=== PATIENT | male | born 1965 | race Caucasian/White ===

== ENCOUNTER 2018-01-05 12:02 | Emergency (ER) | payer OTHER, SELFPAY ==
[2018-01-05 13:05] LABS: #Eosinphils 0.1 thou/uL (0.0-0.7); #Lymphocytes 1.7 thou/uL (1.20-3.40); #Monocytes 0.5 thou/uL (0.11-0.59); #Neutrophils 2.5 thou/uL (1.40-6.50); %Basophils 0.2 % (0.0-1.0); %Eosinophils 2.8 % (0.0-10.0); %Monocytes 9.8 % (0.0-10.0); %Neutrophils 51.2 % (42.0-75.0); Hemoglobin 16.5 g/dL (14.0-18.0); Mean Corpuscular HGB CONC 35.5 g/dL (32.0-36.0); Mean Corpuscular Hemoglobin 33.5 pg (27.0-31.0); Mean Corpuscular Volume 94.2 fl (80.0-94.0); Mean Platelet Volume 6.2 fL (7.4-10.4); Platelet Count 226 thou/uL (130-400); RBC Distribution Width 11.6 % (11.5-14.5); Red Blood Cell (RBC) Count 4.92 mill/uL (4.70-6.10); White Blood Cell (WBC) Count 4.8 thou/uL (4.8-10.8)
[2018-01-05 13:32] LABS: ALT (SGPT) 23 U/L (8-55); AST (SGOT) 15 U/L (5-34); Albumin 4.2 g/dL (3.5-5.0); Alkaline Phosphatase 59 U/L (40-150); Anion Gap 10 mmol/L (10-20); BUN (Urea Nitrogen) 13 mg/dL (8.9-20.6); Bilirubin, Total 0.6 mg/dL (0.2-1.2); Calc. Creatinine Clearance 0 mL/min (70-130); Calcium 9.2 mg/dL (7.8-10.44); Carbon Dioxide 25 mmol/L (22-29); Chloride 109 mmol/L (98-107); Estimated GFR-MDRD Greater than 90; Globulin 2.8 g/dL (2.4-3.5); Glucose 79 mg/dL (70-105); Lipase 23 U/L (8-78); Sodium 140 mmol/L (136-145)
[2018-01-05 13:34] LABS: CKMB 1.1 ng/mL (0-6.6); Troponin I 0.019 ng/mL (< 0.028)
[2018-01-05 14:01] LABS: Bilirubin Negative (Negative); Blood, Urine Negative (Negative); Clarity CLEAR (Clear); Glucose, Urine (Dipstick) Negative (Negative); Leukocyte Negative (Negative); Nitrite Negative (Negative); Protein, Urine (Dipstick) Negative (Neg-Trace); Specific Gravity, Urine 1.013 (1.002-1.036); Urobilinogen 0.2 mg/dL (0.2-1.0)
== END 2018-01-05 14:46 | disposition home or self-care (01) ==
LOC: ERS 12:02
DX: R10.11 Right upper quadrant pain (principal); F41.9 Anxiety disorder, unspecified; F31.9 Bipolar disorder, unspecified; F17.220 Nicotine dependence, chewing tobacco, uncomplicated; Z79.899 Other long term (current) drug therapy
CPT/HCPCS: 80053; 81003; 82553; 83690; 84484; 85025; 93005; 96372

== ENCOUNTER 2018-02-04 21:14 | Observation (INO) | payer BC ==
[2018-02-04 22:52] LABS: Troponin I Less than 0.010 ng/mL (< 0.028)
[2018-02-04] MEDS ORDERED: Ondansetron HCl/PF 4 MG/2 ML Vial IVP PRN (23:48)
[2018-02-04] MEDS ORDERED: Acetaminophen 325 MG TAB PO PRN (23:48)
[2018-02-04] MEDS ORDERED: Ondansetron ODT 4 MG TAB SL PRN (23:48)
[2018-02-05 00:13] VITALS: BMI 36.3
[2018-02-05] MEDS ORDERED: Calcium Carbonate 500 MG ChewTAB PO PRN (00:25)
[2018-02-05] MEDS ORDERED: Acetaminophen 325 MG TAB PO PRN (00:25)
[2018-02-05] MEDS ORDERED: Mag-Al 1200 mg/1200 mg/30 ML UDCUP PO PRN (00:25)
[2018-02-05] MEDS ORDERED: Nitroglycerin 0.4 MG TAB (25 Tab Bottle) PO PRN (00:25)
[2018-02-05] MEDS ORDERED: hydrALAZINE 20 MG/ML VIAL SLOW IVP PRN (00:25)
[2018-02-05] MEDS ORDERED: Ondansetron HCl/PF 4 MG/2 ML Vial IVP PRN (00:25)
[2018-02-05] MEDS ORDERED: Senokot 8.6 MG TAB PO PRN (00:25)
[2018-02-05] MEDS ORDERED: Ondansetron ODT 4 MG TAB PO PRN (00:25)
--- NOTE | 2018-02-05 00:49 | HP ---
DATE OF ADMISSION: 02/04/2018 The patient was seen and examined at 02/04/2018 CHIEF COMPLAINT: Chest discomfort. The patient is a transfer from [facility] Emergency Room. HISTORY OF PRESENT ILLNESS: The patient is a 52-year-old male, who presented to the emergency room a [facility] with chest discomfort that started around 2:00 p.m. while he was resting. The pain was falk bsternal, pressure-like, 4/10 without any radiation. He has some shortness of breath; however, denie s any nausea, palpitations or diaphoresis. He denies any fever, chills or cough. No recent immobili zation, travel reported. He has a history of drug abuse in the past; however, denies any recent drug abuse. He denies any orthopnea, paroxysmal nocturnal dyspnea or exertional shortness of breath. Hi s symptoms improved after nitroglycerin. PAST MEDICAL HISTORY: 1. Hypertension, diet controlled. 2. Bipolar disorder. 3. Depression. PAST SURGICAL HISTORY: 1. Emergent appendectomy. 2. Knee surgery. ALLERGIES: Patient is allergic to DEMEROL and TORADOL. CURRENT HOME MEDICATIONS: Patient does not take any prescription medications. SOCIAL HISTORY: Patient is . He has a history of drug abuse in the past. He chews tobacco. FAMILY HISTORY: Positive for congestive heart failure and heart disease. REVIEW OF SYSTEMS: The following complete review of systems was negative, unless otherwise mentioned in the HPI or below: Constitutional: Weight loss or gain, ability to conduct usual activities. Skin: Rash, itching. Eyes: Double vision, pain. ENT/Mouth: Nose bleeding, neck stiffness, pain, tenderness. Cardiovascular: Palpitations, dyspnea on exertion, orthopnea. Respiratory: Shortness of breath, wheezing, cough, hemoptysis, fever or night sweats. Gastrointestinal: Poor appetite, abdominal pain, heartburn, nausea, vomiting, constipation, or diarr hea. Genitourinary: Urgency, frequency, dysuria, nocturia. Musculoskeletal: Pain, swelling. Neurologic/Psychiatric: Anxiety, depression. Allergy/Immunologic: Skin rash, bleeding tendency. PHYSICAL EXAMINATION: VITAL SIGNS: Temperature 97.7, respiration 18, pulse 67, blood pressure 129/85 with O2 saturation 97 % on room air. GENERAL: A 52-year-old male in no apparent distress. HEENT: Head is atraumatic, normocephalic. Sclerae are anicteric. Moist mucous membrane, no oral le azar. NECK: Supple, no JVD appreciated. No carotid bruit. LUNGS: Clear to auscultation bilaterally, no wheezing, rales or rhonchi. HEART: S1, S2 present. Regular rate and rhythm. Questionable reproducible chest wall tenderness. No heaves or pulsation. ABDOMEN: Soft, nontender, bowel sounds present, no rebound or guarding. EXTREMITIES: No edema or calf tenderness. NEUROLOGIC: Grossly nonfocal, moves all four extremities. PSYCHIATRY: Alert, awake, oriented x3. SKIN: Warm and dry. LYMPH NODES: No palpable lymph nodes in the neck. PERIPHERAL VASCULAR: Radial pulses palpable bilaterally. MUSCULOSKELETAL: No joint swelling or tenderness. LABORATORY FINDINGS AND IMAGING: D-dimer was negative. CBC showed WBC 7 with hemoglobin 17.4, hemat ocrit 44, platelet count of 237. Chemistries showed sodium of 142, potassium 3.5, creatinine 0.78 wi th BUN 12. Troponin was normal. Chest x-ray by my review was negative for infiltrate or edema. EKG by my review showed sinus rhythm without significant ST-T wave changes. Heart rate was 60. IMPRESSION: 1. Chest discomfort in a 52-year-old male with family history of heart disease. Pain improved with sublingual nitroglycerin. 2. Anxiety, depression, bipolar disorder. 3. History of drug abuse. 4. Ongoing tobacco abuse. PLAN: The patient will be monitored in the telemetry unit. We will obtain urine drug screen to rule out any ongoing drug abuse prior to stress test. We will confirm home medications and start accordi ngly if he is on any. He does not take any blood pressure medications. We will trend the troponins. Initial troponins have been negative. His D-dimer is also negative. Continue telemetry monitoring . Plan of care was discussed with the patient in detail. He stated understanding.
[2018-02-05 01:40] LABS: Troponin I Less than 0.010 ng/mL (< 0.028)
[2018-02-05 08:57] LABS: Amphetamine Not Detected (NotDetected); Barbiturates Screen Not Detected (NotDetected); Benzodiazepine Screen Not Detected (NotDetected); Cocaine Metabolite Screen Not Detected (NotDetected); Medtox Control Line Valid? VALID (VALID); Medtox Reader # READER 4; Methadone Not Detected (NotDetected); Methamphetamine Not Detected (NotDetected); Opiate Screen Not Detected (NotDetected); Oxycodone Screen Not Detected (NotDetected); Phencyclidine (PCP) Not Detected (NotDetected); THC/Cannabinoid Screen Not Detected (NotDetected); Tricyclic Screen Not Detected (NotDetected)
[2018-02-05] MEDS ORDERED: Aspirin 325 MG TAB PO SCH (09:00)
[2018-02-05] MEDS ORDERED: Docusate 100 MG CAP PO SCH (09:00)
[2018-02-05 12:02] VITALS: BP 155/77; TEMP 97.9
--- NOTE | 2018-02-05 12:21 | NM ---
MYOCARDIAL PERFUSION SCAN WITH SPECT IMAGING: HISTORY: Chest pain. TECHNIQUE/FINDINGS: Examination performed using 31.7 mCi 99m-technetium sestamibi on the stress and 10.9 on the resting i mages. This shows fairly normal distribution of radiopharmaceutical. No signs of ischemia or scar. WALL MOTION: There is symmetric contractility to the ventricle. LEFT VENTRICULAR EJECTION FRACTION: The calculated left ventricular ejection fraction is 64%. IMPRESSION: Unremarkable myocardial perfusion scan. POS: DARIEL
[2018-02-05] MEDS ORDERED: Regadenoson 0.4 MG/5 ML SYRINGE ONE (16:45)
--- NOTE | 2018-02-05 16:53 | DIS ---
DATE OF ADMISSION: 02/04/2018 DATE OF DISCHARGE: 02/05/2018 DISCHARGE DIAGNOSES: 1. Chest pain, non-cardiac, likely musculoskeletal. 2. Smokeless tobacco use. 3. Elevated blood pressure. 4. History of anxiety/depression. CONSULTATIONS: None. PERTINENT LAB AND X-RAY FINDINGS: Complete metabolic profile within normal limits. Troponin I negat vik x3. Urine drug screen dated 02/05/2018 negative. CBC within normal limits. Portable chest x-ra y dated 02/04/2018 showed no acute cardiopulmonary process. Lexiscan Cardiolite stress test showed a dated 02/05/2018 showed no evidence for reversible or fixed ischemia with calculated ejection fracti on of 64%. HOSPITAL COURSE: The patient was observed on the telemetry unit after initially presenting with ches t pain, ruled out for acute coronary syndrome with serial troponin I negative x3. The patient procee ded to Lexiscan stress testing showing no evidence of reversible or fixed ischemia with calculated ej ection fraction of 64%. Telemetry monitoring showed sinus mechanism with heart rates in the 50s to 6 0s without evidence of acute arrhythmia or dysrhythmia. The patient's symptoms consistent with chest wall discomfort and musculoskeletal origin. The patient overall clinically stable and ready for dis charge on 02/05/2018. DISCHARGE MEDICATIONS: None. FOLLOWUP: The patient given a list of primary care providers and local community health clinics. DIET: Heart healthy. CODE STATUS: FULL. DISPOSITION: Home on 02/05/2018.
[2018-02-06] MEDS ORDERED: FLU VACC QS2017-18 36 mo. & older 0.5 ML SYRINGE IM ONE (09:00)
--- NOTE | 2018-02-11 13:12 | EKG ---
Test Reason : CP RO ACS Blood Pressure : / mmHG Vent. Rate : 060 BPM Atrial Rate : 060 BPM P-R Int : 168 ms QRS Dur : 094 ms QT Int : 412 ms P-R-T Axes : 049 002 040 degrees QTc Int : 412 ms Normal sinus rhythm Normal ECG Confirmed by NASH COELHO ([id number]), visual effects editor CARLTON HUTCHINSON ([id number]) on 02/11/2018 1:11:58 PM Referred By: Confirmed By:NASH COELHO
== END 2018-02-05 14:16 | disposition home or self-care (01) ==
LOC: ERS 21:14 → 2SW 23:43
PROVIDERS: ADMIT Internal Medicine; ATTEND Internal Medicine
DX: R07.89 Other chest pain (principal); F41.8 Other specified anxiety disorders; F17.290 Nicotine dependence, other tobacco product, uncomplicated; F31.9 Bipolar disorder, unspecified; I10 Essential (primary) hypertension; F19.11 Other psychoactive substance abuse, in remission; Z88.5 Allergy status to narcotic agent; Z88.8 Allergy status to other drugs, medicaments and biological substances; Z98.890 Other specified postprocedural states; Z90.49 Acquired absence of other specified parts of digestive tract
CPT/HCPCS: 36415; 78452; 80306; 84484; 90471; 90682; 90732; 93005; 93017; A4216; A9500; G0008; G0009; G0378; J2785; Q2036

== ENCOUNTER 2018-10-08 15:26 | Emergency (ER) | payer OTHER, SELFPAY ==
[2018-10-08] MEDS ORDERED: Lidocaine 1% (PF) 30 ML VIAL ONE (15:39)
[2018-10-08] MEDS ORDERED: Bupivacaine 0.5% 10 ML VIAL ONE (15:39)
[2018-10-08] MEDS ORDERED: Adacel (T-DAP) 0.5 ML VIAL ONE (16:38)
--- NOTE | 2018-10-08 18:15 | RAD ---
LEFT FINGER 3 VIEWS: Date: 10/08/18 HISTORY: Partial amputation. COMPARISON: None. FINDINGS: There is a soft tissue partial amputation of the tuft of the index finger. The underlying bone is int act. IMPRESSION: Partial soft tissue amputation. POS: DARIEL
== END 2018-10-08 16:42 | disposition home or self-care (01) ==
LOC: ERS 15:26
DX: S68.123A Partial traumatic metacarpophalangeal amputation of left middle finger, initial encounter (principal); I10 Essential (primary) hypertension; F41.9 Anxiety disorder, unspecified; F31.9 Bipolar disorder, unspecified; F17.220 Nicotine dependence, chewing tobacco, uncomplicated; Z23 Encounter for immunization; Z79.899 Other long term (current) drug therapy; W23.0XXA Caught, crushed, jammed, or pinched between moving objects, initial encounter
CPT/HCPCS: 90471; 90715; J2001; J3490

== ENCOUNTER 2018-12-29 12:23 | Emergency (ER) | payer OTHER ==
[2018-12-29 13:07] LABS: #Basophils 0.1 thou/uL (0.0-0.2); #Eosinphils 0.1 thou/uL (0.0-0.7); #Lymphocytes 1.3 thou/uL (1.20-3.40); #Monocytes 0.4 thou/uL (0.11-0.59); #Neutrophils 3.7 thou/uL (1.40-6.50); %Basophils 1.3 % (0.0-1.0); %Eosinophils 1.6 % (0.0-10.0); %Lymphocytes 23.7 % (21.0-51.0); %Monocytes 7.2 % (0.0-10.0); %Neutrophils 66.2 % (42.0-75.0); Hemoglobin 17.7 g/dL (14.0-18.0); Mean Corpuscular HGB CONC 33.9 g/dL (32.0-36.0); Mean Corpuscular Hemoglobin 31.5 pg (27.0-31.0); Mean Corpuscular Volume 92.7 fL (78.0-98.0); Mean Platelet Volume 5.9 fL (7.4-10.4); Platelet Count 294 thou/uL (130-400); RBC Distribution Width 11.5 % (11.5-14.5); Red Blood Cell (RBC) Count 5.62 mill/uL (4.70-6.10); White Blood Cell (WBC) Count 5.6 thou/uL (4.8-10.8)
[2018-12-29 13:33] LABS: ALT (SGPT) 12 U/L (8-55); AST (SGOT) 12 U/L (5-34); Albumin 4.4 g/dL (3.5-5.0); Alkaline Phosphatase 73 U/L (40-150); Anion Gap 11 mmol/L (10-20); BUN (Urea Nitrogen) 14 mg/dL (8.4-25.7); Bilirubin, Total 0.5 mg/dL (0.2-1.2); Calc. Creatinine Clearance 0 mL/min (70-130); Calcium 10.1 mg/dL (7.8-10.44); Carbon Dioxide 26 mmol/L (22-29); Chloride 107 mmol/L (98-107); Estimated GFR-MDRD Greater than 90; Glucose 99 mg/dL (70-105); Potassium 4.4 mmol/L (3.5-5.1); Protein, Total 7.4 g/dL (6.0-8.3); Sodium 140 mmol/L (136-145)
[2018-12-29] MEDS ORDERED: Ondansetron ODT 4 MG TAB ONE (14:21)
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
[2018-12-29] MEDS ORDERED: traMADol HCl 50 MG TAB ONE (15:35)
[2018-12-29] MEDS ORDERED: Acetaminophen 500 MG TAB ONE (15:35)
== END 2018-12-29 16:25 | disposition home or self-care (01) ==
LOC: ERS 12:23
DX: F07.81 Postconcussional syndrome (principal); F41.9 Anxiety disorder, unspecified; F17.220 Nicotine dependence, chewing tobacco, uncomplicated; I10 Essential (primary) hypertension; F31.9 Bipolar disorder, unspecified; Z79.899 Other long term (current) drug therapy
CPT/HCPCS: 36415; 70450; 80053; 84484; 85025; 93005; Q0162

== ENCOUNTER 2019-03-20 16:55 | Emergency (ER) | payer SELFPAY | END 2019-03-20 18:12 | disposition home or self-care (01) | LOC: ERS 16:55 | DX: R11.2 Nausea with vomiting, unspecified (principal); I10 Essential (primary) hypertension; F41.9 Anxiety disorder, unspecified; F31.9 Bipolar disorder, unspecified; F17.220 Nicotine dependence, chewing tobacco, uncomplicated | CPT/HCPCS: 99283 ==

== ENCOUNTER 2019-03-29 21:48 | Emergency (ER) | payer SELFPAY ==
[~2019-03-29 21:48] MED LIST: ISOVUE-370 76%-LOCM 1 ML ONE
[2019-03-29] MEDS ORDERED: Famotidine/PF 20 mg/2ml Vial ONE (22:12)
[2019-03-29] MEDS ORDERED: Mag-Al 1200 mg/1200 mg/30 ML UDCUP ONE (22:12)
[2019-03-29] MEDS ORDERED: Famotidine 20 MG TAB ONE (22:13)
[2019-03-29 22:57] LABS: #Basophils 0.1 thou/uL (0.0-0.2); #Eosinphils 0.1 thou/uL (0.0-0.7); #Monocytes 0.4 thou/uL (0.11-0.59); #Neutrophils 2.8 thou/uL (1.40-6.50); %Basophils 1.8 % (0.0-1.0); %Eosinophils 2.3 % (0.0-10.0); %Lymphocytes 36.3 % (21.0-51.0); %Monocytes 7.4 % (0.0-10.0); %Neutrophils 52.1 % (42.0-75.0); Hemoglobin 15.2 g/dL (14.0-18.0); Mean Corpuscular HGB CONC 35.7 g/dL (32.0-36.0); Mean Corpuscular Hemoglobin 32.7 pg (27.0-31.0); Mean Corpuscular Volume 91.5 fL (78.0-98.0); Mean Platelet Volume 6.3 fL (7.4-10.4); Platelet Count 228 thou/uL (130-400); RBC Distribution Width 11.4 % (11.5-14.5); Red Blood Cell (RBC) Count 4.65 mill/uL (4.70-6.10); White Blood Cell (WBC) Count 5.4 thou/uL (4.8-10.8)
[2019-03-29 23:07] LABS: ALT (SGPT) 16 U/L (8-55); AST (SGOT) 13 U/L (5-34); Albumin 3.9 g/dL (3.5-5.0); Alkaline Phosphatase 72 U/L (40-150); Anion Gap 14 mmol/L (10-20); BUN (Urea Nitrogen) 15 mg/dL (8.4-25.7); Bilirubin, Total 0.3 mg/dL (0.2-1.2); Calc. Creatinine Clearance 0 mL/min (70-130); Carbon Dioxide 21 mmol/L (22-29); Chloride 109 mmol/L (98-107); Estimated GFR-MDRD Greater than 90; Globulin 2.7 g/dL (2.4-3.5); Glucose 103 mg/dL (70-105); Lipase 33 U/L (8-78); Potassium 3.5 mmol/L (3.5-5.1); Protein, Total 6.6 g/dL (6.0-8.3); Sodium 140 mmol/L (136-145)
--- NOTE | 2019-03-29 23:47 | CT ---
CT ABDOMEN WITH CONTRAST CT PELVIS WITH CONTRAST: DATE: 03/29/2019 HISTORY: 53-year-old male with left upper quadrant abdominal pain TECHNIQUE: IV injection of iodinated contrast media: Administered Oral contrast media:Not administered FINDINGS: Liver: No focal solid mass. Spleen: No splenomegaly.. Pancreas: No mass or surrounding fat stranding.. Adrenals: No mass.. Kidneys: No hydronephrosis or enhancement abnormalities. There are at least 3 tiny bilateral renal ca lculi on the order of 2 mm in size each, 2 at right lower pole and one at left upper pole. Ureters: No dilation. Bladder: No pathology identified. Abdominal aorta: No aneurysm. Small bowel: No dilation. Colon: No adjacent fat stranding. Appendix: Surgically absent by history. Free air: None. Free fluid: None. Lung bases: Clear. IMPRESSION: 1. No acute findings. 2. Mild bilateral nephrolithiasis. 3. Status post appendectomy.
[2019-03-30 00:11] LABS: Bilirubin Negative (Negative); Blood, Urine Negative (Negative); Clarity CLEAR (Clear); Glucose, Urine (Dipstick) Negative (Negative); Leukocyte Negative (Negative); Nitrite Negative (Negative); Protein, Urine (Dipstick) Negative (Neg-Trace); Specific Gravity, Urine 1.017 (1.002-1.036)
== END 2019-03-30 00:27 | disposition home or self-care (01) ==
LOC: ERS 21:48
DX: K29.70 Gastritis, unspecified, without bleeding (principal); I10 Essential (primary) hypertension; F17.220 Nicotine dependence, chewing tobacco, uncomplicated; Z79.899 Other long term (current) drug therapy
CPT/HCPCS: 36415; 74177; 80053; 81003; 83690; 85025; Q9966; S0028

== ENCOUNTER 2019-04-18 21:39 | Emergency (ER) | payer SELFPAY ==
[2019-04-18] MEDS ORDERED: Morphine 4 MG/ML VIAL ONE ×2 (22:37→22:56)
[2019-04-18] MEDS ORDERED: Ondansetron PF 4 MG/2 ML Vial ONE (22:37)
--- NOTE | 2019-04-18 22:52 | ULT ---
Testicular ultrasound history left-sided testicular pain. The patient has a history of undescended ri ght testicle. Multiple longitudinal and transverse images of the scrotum is obtained using multi hertz linear array transducer. Real-time, color flow and spectral waveform Doppler analysis demonstrates nonvisualization of the right testicle. The left testicle measures 3.4 x 4.8 x 2.2 cm. Good blood flow seen in the left testicle. No evidence of testicular mass is seen on the left. The left epididymis is unremarkable measuring 9 x 7 x 7 mm. A small left-sided varicocele is present. IMPRESSION: 1: Normal-appearing left testicle. 2: Prosthetic right testicle.
[2019-04-18] MEDS ORDERED: Ondansetron ODT 4 MG TAB ONE (22:56)
[2019-04-18] MEDS ORDERED: Acetaminophen 325 MG TAB ONE (23:19)
[2019-04-19 00:34] LABS: Clarity Clear (Clear)
[2019-04-19 00:37] LABS: Specific Gravity, Urine 1.025 (1.005-1.030)
[2019-04-19 00:38] LABS: Bilirubin Negative (Negative); Blood, Urine Negative (Negative); Glucose, Urine (Dipstick) Negative (Negative); Leukocyte Negative (Negative); Nitrite Negative (Negative); Protein, Urine (Dipstick) Negative (Neg-Trace)
== END 2019-04-19 00:16 | disposition home or self-care (01) ==
LOC: ERS 21:39
DX: N50.812 Left testicular pain (principal); I10 Essential (primary) hypertension; F17.210 Nicotine dependence, cigarettes, uncomplicated
CPT/HCPCS: 76870; 81003; 93976; 96372; J2270; J2405; Q0162

== ENCOUNTER 2020-04-26 13:34 | Emergency (ER) | payer SELFPAY | END 2020-04-26 14:02 | disposition home or self-care (01) | LOC: ERS 13:34 | DX: Z48.817 Encounter for surgical aftercare following surgery on the skin and subcutaneous tissue (principal); F17.220 Nicotine dependence, chewing tobacco, uncomplicated; F41.9 Anxiety disorder, unspecified; I10 Essential (primary) hypertension; F31.9 Bipolar disorder, unspecified; Z79.899 Other long term (current) drug therapy | CPT/HCPCS: 99282 ==

== ENCOUNTER 2020-05-27 20:12 | Inpatient (IN) | payer SELFPAY ==
[2020-05-27 23:49] VITALS: BMI 33.3
[2020-05-28] MEDS: Morphine 4 MG/ML VIAL SLOW IVP PRN (00:18)
[2020-05-28] MEDS ORDERED: Acetaminophen/Codeine 30-300mg Tablet PO PRN (02:29)
[2020-05-28] MEDS ORDERED: Fentanyl 100 MCG/2 ML VIAL SLOW IVP PRN (02:29)
[2020-05-28] MEDS ORDERED: Acetaminophen 325 MG TAB PO PRN (02:29)
[2020-05-28] MEDS ORDERED: Morphine 4 MG/ML VIAL SLOW IVP PRN (02:29)
[2020-05-28] MEDS ORDERED: TETANUS AND DIPHTHERIA TOX/PF 0.5 ML DISP.SYRIN IM SCH (02:30)
[2020-05-28] MEDS ORDERED: Sodium Chloride 0.9% 100 ML IV SCH (02:30)
[2020-05-28] MEDS ORDERED: Communication Order-Pharmacy FS PRN (02:30)
[2020-05-28] MEDS: HYDROcodone/Acetaminophen 5/325 mg Tablet PO PRN ×2 (02:58→20:13)
[2020-05-28] MEDS: Sodium Chloride 0.9% 1,000 ML IV SCH ×2 (04:17→12:23)
[2020-05-28] MEDS ORDERED: Ketorolac Tromethamine 30 MG/ML VIAL IVP SCH (06:00)
[2020-05-28 06:09] LABS: #Basophils 0.1 thou/uL (0.0-0.2); #Eosinphils 0.2 thou/uL (0.0-0.7); #Lymphocytes 2.2 thou/uL (1.20-3.40); #Monocytes 0.7 thou/uL (0.11-0.59); #Neutrophils 5.3 thou/uL (1.40-6.50); %Basophils 0.9 % (0.0-1.0); %Eosinophils 2.2 % (0.0-10.0); %Lymphocytes 25.9 % (21.0-51.0); %Monocytes 8.6 % (0.0-10.0); %Neutrophils 62.4 % (42.0-75.0); Hemoglobin 15.3 g/dL (14.0-18.0); Mean Corpuscular Hemoglobin 31.9 pg (27.0-31.0); Mean Corpuscular Volume 93.7 fL (78.0-98.0); Mean Platelet Volume 6.3 fL (7.4-10.4); Platelet Count 242 thou/uL (130-400); RBC Distribution Width 11.7 % (11.5-14.5); Red Blood Cell (RBC) Count 4.82 mill/uL (4.70-6.10); White Blood Cell (WBC) Count 8.5 thou/uL (4.8-10.8)
[2020-05-28] MEDS ORDERED: diphenhydrAMINE 50 MG CAP PO PRN (08:08)
[2020-05-28] MEDS: Aspirin 81 mg Enteric Coated Tablet PO SCH ×2 (08:43→20:14)
[2020-05-28] MEDS ORDERED: Vancomycin 1 GM in Premix Bag 1 BAG IVPB SCH (09:00)
[2020-05-28] MEDS ORDERED: PROPOFOL 200 MG/20 ML VIAL ONE (09:49)
[2020-05-28] MEDS ORDERED: Lidocaine 1% PF 5 ML VIAL ONE (09:49)
[2020-05-28] MEDS ORDERED: Ondansetron PF 4 MG/2 ML Vial ONE (09:49)
[2020-05-28] MEDS ORDERED: Rocuronium Bromide 10 MG/ML (10ML VIAL) ONE (09:49)
[2020-05-28] MEDS ORDERED: Glycopyrrolate 0.2 MG/ML 5 ML SYRINGE ONE (09:49)
[2020-05-28] MEDS ORDERED: EPHEDRINE 25 MG/5 ML SYRINGE ONE (09:49)
[2020-05-28] MEDS ORDERED: Succinylcholine Chloride 20 MG/ML 10 ml SYRINGE FS ONE (09:49)
[2020-05-28] MEDS ORDERED: Fentanyl 100 MCG/2 ML VIAL ONE ×2 (12:17)
[2020-05-28] MEDS ORDERED: Bacitracin Zinc Ointment 30 gm TUBE ONE (12:55)
[2020-05-28] MEDS ORDERED: Bupivacaine PF 0.5% 30 ML VIAL ONE (12:55)
[2020-05-28] MEDS: Vancomycin 1.5 GRAM/300 ML BAG 1.5 GM in Premix Bag 1 BAG IVPB SCH (16:51)
[2020-05-29] MEDS: Vancomycin 1.5 GRAM/300 ML BAG 1.5 GM in Premix Bag 1 BAG IVPB SCH ×2 (02:54→16:13)
[2020-05-29] MEDS: HYDROcodone/Acetaminophen 5/325 mg Tablet PO PRN ×3 (03:21→16:12)
[2020-05-29] MEDS: Sodium Chloride 0.9% 1,000 ML IV SCH ×2 (03:24→09:20)
[2020-05-29] MEDS: Aspirin 81 mg Enteric Coated Tablet PO SCH ×2 (09:19→19:53)
--- NOTE | 2020-05-29 15:34 | OP ---
DATE OF PROCEDURE: 05/28/2020 PREOPERATIVE DIAGNOSES: 1. Left index finger open wound with ulnar intrinsic laceration. 2. Foreign body seen with small amount of contamination around the foreign body (small part). No evidence of contamination below the level of the tendon. No joint violation. POSTOPERATIVE DIAGNOSIS: Small abscess cavity, foreign body, router, 15 cm proximal to the 1st webspace, ulnar forearm, same side. PROCEDURES PERFORMED: 1. Foreign body removal, forearm, left. 2. I and D abscess of forearm. 3. Debridement of wound down to including tendon (04432) level. 4. Closure of wound 5 cm. FINDING: There was small part of the router, no gross infection. TOURNIQUET TIME: 22 minutes at 250 mmHg pressure. ESTIMATED BLOOD LOSS: 10 mL. INJECTION: Yes, 26 mL total of Marcaine. DESCRIPTION OF PROCEDURE: After successful general endotracheal anesthesia, the limb was prepped and draped. We see initially the primary wound, which was 5 cm, located in the dorsal web space, more over the ulnar aspect of the index finger at the 2nd web. Then, while prepping and draping, we discovered that he had a 6 mm abscess with erythema, circumscribed around a lesion of the forearm, 15 cm proximal to the 2nd web space along the ulnar border. For this reason, we would include this in the procedure, not initially consented, but it would be improper to leave this at this time. We exsanguinated the limb, inflated the tourniquet to 250 mmHg pressure. We extended the initial 5 cm incision, 1 cm distal and 2 cm proximal. We debrided all the soft tissue, looked denuded and elevated and found the foreign body just under the dorsum of the MP joint index finger. It had a small amount of scatter around it, which we debrided with a combination of tenotomy scissors, [place] blade, and a crile. We used excisional technique and the depth was down to but not including the tendon itself because there was a small hole in the tendon. The hole was in the intrinsic or sagittal bands at the midportion and needed to be repaired. So we finished our debridement, irrigated with 5 L normal saline and Pulsavac pressure at the site and then repaired the tendon problem with an interrupted [id number] 4-0 prolene. At this point, we then extended the incision proximally and found one or two probable areas, of less than 2 mm, removed completely and irrigated again. At this point, we released the tourniquet. We obtained hemostasis. We closed the wound with 4-0 nylon in an interrupted mattress pattern and gave the final additional injectable medicine here and then 10 mL at the forearm area. A small incision was made over this erythematous area and immediately under the skin, both foreign body and gross purulence escaped. Foreign body was the same type seen in the previous 2nd web space procedure. We finished debridement with the same technique and instrumentation used in the 1st episode. Job ID: [id number]
[2020-05-29 15:43] LABS: Vancomycin, Trough 16.2 ug/mL
[2020-05-29] MEDS: Morphine 4 MG/ML VIAL SLOW IVP PRN (17:30)
[2020-05-29] MEDS: traMADol HCl 50 MG TAB PO PRN (19:57)
[2020-05-30] MEDS: Sodium Chloride 0.9% 1,000 ML IV SCH ×2 (00:39→06:44)
[2020-05-30] MEDS: Vancomycin 1.5 GRAM/300 ML BAG 1.5 GM in Premix Bag 1 BAG IVPB SCH (03:04)
[2020-05-30] MEDS: traMADol HCl 50 MG TAB PO PRN (06:54)
[2020-05-30] MEDS: Aspirin 81 mg Enteric Coated Tablet PO SCH (08:38)
[2020-05-30 11:45] VITALS: BP 118/73; TEMP 97.9
--- NOTE | 2020-06-02 07:47 | PQF ---
Marissa URIEL Santos [id number] CLINICAL DOCUMENTATION CLARIFICATION FORM: POST DISCHARGE Addendum to original discharge summary date: ____ Late entry note date: __ DATE: 06/02/2020 ATTN:Uriel Dang Please exercise your independent, professional judgment in responding to the clarification form. Clinical indicators are provided on the bottom of this form for your review Please check appropriate box(s): [ ] Excisional Debridement: Depth / layer: (deepest layer of debridement): [ ] Skin[ ] SubQ Tissue [ ] Fascia [ ] Muscle [ ] Tendon [ ] Bone [ ] Other procedure diagnosis [ ] Unable to determine For continuity of documentation, please document condition throughout progress notes and discharge summary. Thank You. CLINICAL INDICATORS - SIGNS / SYMPTOMS / LABS OP Note 05/28 "small abscess cavity, foreigh body left forearm" OP Note 05/28 "extended the initial 5cm incision 1 cm distal and 2 cm proximal" OP Note 05/28 "we debrided all the soft tissue" OP Note 05/28 "we debrided with a combination of tenotomy scissor, [place] blade and knife" OP Note 05/28 "we used excisional techniquie and the depth was odown to but not including tendon" RISK FACTORS Abscess of forearm-OP Note 05/28 Obesity-Anesthesia 05/28 Smoker-Anesthesia 05/28 TREATMENTS: Debridement with I&D of forearm-OP Note 05/28 Vancomycin 2gm IV-FEB 01 (This form is maintained as a part of the permanent medical record) 2014 [employer]. All Rights Reserved [email or web address] [email or web address]
== END 2020-05-30 11:50 | disposition home or self-care (01) | DRG 581 ==
LOC: SURG B 20:14 → OBSVTOIN 20:14
PROVIDERS: ADMIT Orthopaedic Surgery Hand Surgery; ATTEND Orthopaedic Surgery Hand Surgery
PROC: 3E0234Z Introduction of Serum, Toxoid and Vaccine into Muscle, Percutaneous Approach (ICD-10-PCS; principal; 2020-05-28)
PROC: 0KBB0ZZ Excision of Left Lower Arm and Wrist Muscle, Open Approach (ICD-10-PCS; 2020-05-28)
PROC: 0LQ60ZZ Repair Left Lower Arm and Wrist Tendon, Open Approach (ICD-10-PCS; 2020-05-28)
PROC: 0JCH0ZZ Extirpation of Matter from Left Lower Arm Subcutaneous Tissue and Fascia, Open Approach (ICD-10-PCS; 2020-05-28)
DX: L02.414 Cutaneous abscess of left upper limb (principal); Z23 Encounter for immunization; I10 Essential (primary) hypertension; E78.5 Hyperlipidemia, unspecified; G47.30 Sleep apnea, unspecified; E66.9 Obesity, unspecified; F41.9 Anxiety disorder, unspecified; F31.9 Bipolar disorder, unspecified; F17.220 Nicotine dependence, chewing tobacco, uncomplicated; Z68.33 Body mass index [BMI] 33.0-33.9, adult; Z88.8 Allergy status to other drugs, medicaments and biological substances; S51.842A Puncture wound with foreign body of left forearm, initial encounter
CPT/HCPCS: 36415; 80202; 82565; 85025; 87070; 87205; J2001; J2270; J2405; J2704; J3010; J3370; J7030; Q0163; S0020

== ENCOUNTER 2020-11-10 21:59 | Emergency (ER) | payer SELFPAY ==
[2020-11-10] MEDS ORDERED: Dexamethasone 10 MG/ML VIAL ONE (23:10)
--- NOTE | 2020-11-10 23:13 | RAD ---
Exam: Chest one view HISTORY:Dyspnea. COVID positive. Comparison: 02/15/2019 FINDINGS: Cardiac silhouette: Normal Aorta: Unremarkable Pulmonary vessels: Normal Costophrenic angles: Clear LUNGS: No masses or consolidation. Pneumothorax: None Osseous abnormalities: None IMPRESSION: No acute cardiopulmonary process.
[2020-11-11] MEDS ORDERED: diphenhydrAMINE 50 MG/ML VIAL ONE (00:03)
[2020-11-11] MEDS ORDERED: Metoclopramide HCl 10 MG/2 ML VIAL ONE (00:06)
[2020-11-11] MEDS ORDERED: Metoclopramide 10 MG/10 ML UDCUP ONE (00:06)
[2020-11-11 00:25] LABS: #Basophils 0.1 thou/uL (0.0-0.2); #Eosinphils 0.1 thou/uL (0.0-0.7); #Lymphocytes 1.4 thou/uL (1.20-3.40); #Monocytes 0.6 thou/uL (0.11-0.59); #Neutrophils 7.3 thou/uL (1.40-6.50); %Basophils 1.1 % (0.0-1.0); %Lymphocytes 14.7 % (21.0-51.0); %Monocytes 6.1 % (0.0-10.0); %Neutrophils 77.2 % (42.0-75.0); Hemoglobin 16.6 g/dL (14.0-18.0); Mean Corpuscular HGB CONC 34.4 g/dL (32.0-36.0); Mean Corpuscular Hemoglobin 32.1 pg (27.0-31.0); Mean Corpuscular Volume 93.1 fL (78.0-98.0); Platelet Count 239 thou/uL (130-400); RBC Distribution Width 11.4 % (11.5-14.5); Red Blood Cell (RBC) Count 5.18 mill/uL (4.70-6.10); White Blood Cell (WBC) Count 9.4 thou/uL (4.8-10.8)
[2020-11-11 00:48] LABS: ALT (SGPT) 23 U/L (8-55); AST (SGOT) 31 U/L (5-34); Albumin 3.4 g/dL (3.5-5.0); Alkaline Phosphatase 61 U/L (40-110); Anion Gap 14 mmol/L (10-20); BUN (Urea Nitrogen) 13 mg/dL (8.4-25.7); Bilirubin, Total 0.3 mg/dL (0.2-1.2); CK (CPK) 32 U/L (30-200); Calc. Creatinine Clearance 0 mL/min (70-130); Calcium 8.4 mg/dL (7.8-10.44); Carbon Dioxide 25 mmol/L (22-29); Chloride 106 mmol/L (98-107); Globulin 3.4 g/dL (2.4-3.5); Glucose 96 mg/dL (70-105); Lipase 28 U/L (8-78); Potassium 4.7 mmol/L (3.5-5.1); Protein, Total 6.8 g/dL (6.0-8.3); Sodium 140 mmol/L (136-145)
--- NOTE | 2020-11-15 13:28 | EKG ---
Test Reason : Blood Pressure : / mmHG Vent. Rate : 068 BPM Atrial Rate : 068 BPM P-R Int : 154 ms QRS Dur : 090 ms QT Int : 404 ms P-R-T Axes : 043 -01 051 degrees QTc Int : 429 ms Normal sinus rhythm Cannot rule out Inferior infarct , age undetermined Abnormal ECG Confirmed by AUGUSTO AGUAYO M.D. ([id number]), manager editorial ANNELIESE RACHEL ([id number]) on 11/15/2020 1:28:17 PM Referred By: Confirmed By:AUGUSTO AGUAYO M.D.
== END 2020-11-11 01:25 | disposition home or self-care (01) ==
LOC: ERS 21:59
DX: U07.1 COVID-19 (principal); I10 Essential (primary) hypertension
CPT/HCPCS: 36415; 71045; 80053; 82550; 83690; 83880; 84484; 85025; 85379; 93005; 96374; 96375; J1100; J1200; J2765

== ENCOUNTER 2021-05-05 15:01 | Emergency (ER) | payer OTHER ==
[2021-05-05] MEDS ORDERED: Diazepam 5 MG TAB ONE (16:54)
== END 2021-05-05 17:11 | disposition home or self-care (01) ==
LOC: ERS 15:01
DX: S20.211A Contusion of right front wall of thorax, initial encounter (principal); I10 Essential (primary) hypertension; F17.220 Nicotine dependence, chewing tobacco, uncomplicated; Z79.899 Other long term (current) drug therapy; X50.0XXA Overexertion from strenuous movement or load, initial encounter

== ENCOUNTER 2021-11-02 16:00 | Inpatient (IN) | payer SELFPAY ==
[2021-11-02 16:46] LABS: #Eosinphils 0.1 thou/uL (0.0-0.7); #Lymphocytes 1.7 thou/uL (1.20-3.40); #Neutrophils 7.7 thou/uL (1.40-6.50); %Basophils 0.2 % (0.0-1.0); %Eosinophils 0.8 % (0.0-10.0); %Monocytes 9.8 % (0.0-10.0); %Neutrophils 73.2 % (42.0-75.0); Hemoglobin 19.2 g/dL (14.0-18.0); Mean Corpuscular HGB CONC 35.2 g/dL (32.0-36.0); Mean Corpuscular Volume 93.5 fL (78.0-98.0); Mean Platelet Volume 6.3 fL (7.4-10.4); Platelet Count 210 thou/uL (130-400); RBC Distribution Width 11.7 % (11.5-14.5); Red Blood Cell (RBC) Count 5.83 mill/uL (4.70-6.10); White Blood Cell (WBC) Count 10.6 thou/uL (4.8-10.8)
[2021-11-02] MEDS ORDERED: cefTRIAXone\\ROCEPHIN 2 GM VIAL ONE (16:50)
[2021-11-02 16:56] LABS: Prothrombin Time 13.6 sec (12.0-14.7)
[2021-11-02] MEDS ORDERED: Azithromycin 500 MG VIAL ONE (17:38)
[2021-11-02 17:50] LABS: ALT (SGPT) 18 U/L (8-55); AST (SGOT) 24 U/L (5-34); Albumin 3.4 g/dL (3.5-5.0); Alkaline Phosphatase 72 U/L (40-110); Anion Gap 15 mmol/L (10-20); BUN (Urea Nitrogen) 15 mg/dL (8.4-25.7); Bilirubin, Total 0.7 mg/dL (0.2-1.2); Calc. Creatinine Clearance 0 mL/min (70-130); Calcium 8.3 mg/dL (7.8-10.44); Carbon Dioxide 21 mmol/L (22-29); Chloride 108 mmol/L (98-107); Globulin 3.5 g/dL (2.4-3.5); Glucose 103 mg/dL (70-105); Potassium 3.9 mmol/L (3.5-5.1); Protein, Total 6.9 g/dL (6.0-8.3); Sodium 140 mmol/L (136-145)
[2021-11-02 17:52] LABS: SARS-CoV-2 NAA Rapid Test Not Detected (NotDetected)
[2021-11-02] MEDS ORDERED: Ondansetron ODT 4 MG TAB SL PRN (20:30)
[2021-11-02] MEDS ORDERED: Acetaminophen 325 MG TAB PO PRN (20:30)
[2021-11-02] MEDS ORDERED: Ondansetron PF 4 MG/2 ML Vial IVP PRN (20:30)
[2021-11-02] MEDS ORDERED: HYDROcodone/Acetaminophen 5/325 mg Tablet PO PRN (21:19)
[2021-11-02] MEDS ORDERED: Amlodipine 10 MG TAB PO SCH (21:30)
[2021-11-02] MEDS: Guaifenesin DM 100-10/5 ML UDCUP PO PRN (21:50)
[2021-11-02] MEDS: Nicotine 14 MG PATCH TD SCH (21:50)
[2021-11-02] MEDS: Lactated Ringer's 1,000 ML IV SCH (21:51)
[2021-11-03] MEDS: Guaifenesin DM 100-10/5 ML UDCUP PO PRN ×4 (04:19→17:45)
[2021-11-03 07:57] LABS: ALT (SGPT) 16 U/L (8-55); AST (SGOT) 13 U/L (5-34); Albumin 3.6 g/dL (3.5-5.0); Alkaline Phosphatase 67 U/L (40-110); Anion Gap 12 mmol/L (10-20); BUN (Urea Nitrogen) 12 mg/dL (8.4-25.7); Bilirubin, Total 0.7 mg/dL (0.2-1.2); Calc. Creatinine Clearance 153 mL/min (70-130); Calcium 8.6 mg/dL (7.8-10.44); Carbon Dioxide 22 mmol/L (22-29); Chloride 108 mmol/L (98-107); Globulin 3.2 g/dL (2.4-3.5); Glucose 90 mg/dL (70-105); Potassium 4.1 mmol/L (3.5-5.1); Protein, Total 6.8 g/dL (6.0-8.3); Sodium 138 mmol/L (136-145)
[2021-11-03] MEDS: Lactated Ringer's 1,000 ML IV SCH (08:44)
[2021-11-03] MEDS: Amlodipine 5 MG TAB PO SCH (08:44)
[2021-11-03] MEDS: Enoxaparin Sodium 40 MG/0.4 ML SYRINGE SC SCH (08:44)
[2021-11-03] MEDS: Famotidine 20 MG TAB PO SCH ×2 (08:44→21:36)
[2021-11-03] MEDS ORDERED: FLU VACC QS2021-22(6MOS UP)/PF 60 MCG/0.5 ML SYRINGE IM ONE (09:00)
[2021-11-03 09:24] LABS: Hemoglobin 16.6 g/dL (14.0-18.0); Mean Corpuscular HGB CONC 33.1 g/dL (32.0-36.0); Mean Corpuscular Hemoglobin 31.2 pg (27.0-31.0); Mean Corpuscular Volume 94.2 fL (78.0-98.0); Platelet Count 193 thou/uL (130-400); RBC Distribution Width 11.6 % (11.5-14.5); Red Blood Cell (RBC) Count 5.33 mill/uL (4.70-6.10); White Blood Cell (WBC) Count 9.6 thou/uL (4.8-10.8)
[2021-11-03] MEDS ORDERED: methylPREDNISolone Sod Succ 40 MG VIAL IVP SCH (09:45)
[2021-11-03] MEDS ORDERED: Albuterol Sulfate 1.25 MG/3 ML NEB EZPAP PRN (09:46)
[2021-11-03] MEDS ORDERED: Albuterol Sulfate 1.25 MG/3 ML NEB EZPAP SCH (10:00)
[2021-11-03 10:16] LABS: Band 8 % (5-11); Eosinophils 1 % (0-10); Lymphocytes 13 % (21-51); MDiff Complete? YES; Monocytes 1 % (0-10); Neutrophil 71 % (42-75); Platelet Morphology Comment Appears Adequate; RBC Morphology Normal; Reactive Lymphocytes 6 % (0-10)
[2021-11-03] MEDS ORDERED: Ketorolac Tromethamine 30 MG/ML VIAL IVP SCH (13:50)
[2021-11-03] MEDS ORDERED: Budesonide 0.25 MG/2 ML NEB INH SCH (14:30)
[2021-11-03] MEDS: methylPREDNISolone Sod Succ 40 MG VIAL IVP SCH (17:45)
[2021-11-03] MEDS: Nicotine 14 MG PATCH TD SCH (21:37)
[2021-11-04] MEDS: methylPREDNISolone Sod Succ 40 MG VIAL IVP SCH ×3 (00:43→11:17)
[2021-11-04] MEDS ORDERED: Budesonide 0.25 MG/2 ML NEB INH SCH (06:30)
[2021-11-04] MEDS: Amlodipine 5 MG TAB PO SCH (08:51)
[2021-11-04] MEDS: Famotidine 20 MG TAB PO SCH (08:51)
[2021-11-04] MEDS: Enoxaparin Sodium 40 MG/0.4 ML SYRINGE SC SCH (08:52)
[2021-11-04] MEDS ORDERED: Lidocaine 5% Patch TD SCH (09:00)
[2021-11-04 11:55] VITALS: BP 124/69; TEMP 98.6
[2021-11-04] MEDS ORDERED: Transdermal Patch Removal TOP SCH (21:00)
== END 2021-11-04 13:58 | disposition home or self-care (01) | DRG 202 ==
LOC: ERS 16:00 → T4-A 18:26 → OBSVTOIN 11-03 13:49
PROVIDERS: ADMIT Internal Medicine; ATTEND Internal Medicine
DX: J20.9 Acute bronchitis, unspecified (principal); J44.0 Chronic obstructive pulmonary disease with (acute) lower respiratory infection; I10 Essential (primary) hypertension; D75.1 Secondary polycythemia; F31.9 Bipolar disorder, unspecified; F17.220 Nicotine dependence, chewing tobacco, uncomplicated; Z20.822 Contact with and (suspected) exposure to COVID-19; Z88.8 Allergy status to other drugs, medicaments and biological substances; Z79.899 Other long term (current) drug therapy; Z90.49 Acquired absence of other specified parts of digestive tract
CPT/HCPCS: 0240U; 36415; 71045; 71250; 80053; 83605; 84484; 85007; 85027; 85610; 85730; 87040; 87149; 93005; 94640; 94760; 96372; 96375; G0378; J0456; J0696; J1650; J1956; J2920; J7120; J7620; J7626

== ENCOUNTER 2023-01-26 19:49 | Emergency (ER) | payer SELFPAY ==
[2023-01-26 20:13] LABS: #Basophils 0.1 thou/uL (0.0-0.2); #Eosinphils 0.2 thou/uL (0.0-0.7); #Lymphocytes 2.2 thou/uL (1.20-3.40); #Monocytes 0.9 thou/uL (0.11-0.59); #Neutrophils 3.9 thou/uL (1.40-6.50); %Basophils 0.8 % (0.0-1.0); %Eosinophils 3.1 % (0.0-10.0); %Lymphocytes 30.7 % (21.0-51.0); %Monocytes 11.8 % (0.0-10.0); %Neutrophils 53.7 % (42.0-75.0); Mean Corpuscular HGB CONC 34.7 g/dL (32.0-36.0); Mean Corpuscular Hemoglobin 32.7 pg (27.0-31.0); Mean Corpuscular Volume 94.3 fl (78.0-98.0); Mean Platelet Volume 6.1 fL (7.4-10.4); Platelet Count 250 10x3/uL (130-400); RBC Distribution Width 11.6 % (11.5-14.5); White Blood Cell (WBC) Count 7.3 10x3/uL (4.8-10.8)
[2023-01-26 20:38] LABS: ALT (SGPT) 11 U/L (8-55); AST (SGOT) 10 U/L (5-34); Albumin 3.9 g/dL (3.5-5.0); Alkaline Phosphatase 90 U/L (40-110); Anion Gap 14 mmol/L (10-20); BUN (Urea Nitrogen) 12 mg/dL (8.4-25.7); Bilirubin, Total 0.4 mg/dL (0.2-1.2); Calc. Creatinine Clearance 0 mL/min (70-130); Calcium 9.1 mg/dL (7.8-10.44); Carbon Dioxide 24 mmol/L (22-29); Chloride 107 mmol/L (98-107); Estimated GFR 81; Globulin 2.8 g/dL (2.4-3.5); Glucose 99 mg/dL (70-105); Potassium 4.2 mmol/L (3.5-5.1); Protein, Total 6.7 g/dL (6.0-8.3); Sodium 141 mmol/L (136-145)
== END 2023-01-26 22:59 | disposition home or self-care (01) ==
LOC: ERS 19:49
DX: J06.9 Acute upper respiratory infection, unspecified (principal); I10 Essential (primary) hypertension
CPT/HCPCS: 36415; 71045; 80053; 84484; 85025; 93005

== ENCOUNTER 2023-04-05 18:49 | Inpatient (IN) | payer SELFPAY ==
[~2023-04-05 18:49] MED LIST changes: -ISOVUE-370 76%-LOCM 1 ML ONE; +Iopamidol 370 76% 100 ML VIAL ONE
[2023-04-05] MEDS ORDERED: Morphine 4 MG/ML VIAL ONE (19:44)
[2023-04-05] MEDS ORDERED: Ondansetron PF 4 MG/2 ML Vial ONE (19:44)
[2023-04-05 19:59] LABS: #Basophils 0.1 thou/uL (0.0-0.2); #Eosinphils 0.1 thou/uL (0.0-0.7); #Monocytes 0.9 thou/uL (0.11-0.59); #Neutrophils 12.8 thou/uL (1.40-6.50); %Basophils 0.3 % (0.0-1.0); %Eosinophils 0.5 % (0.0-10.0); %Lymphocytes 9.6 % (21.0-51.0); %Monocytes 5.7 % (0.0-10.0); %Neutrophils 83.5 % (42.0-75.0); Hemoglobin 19.3 g/dL (14.0-18.0); Mean Corpuscular HGB CONC 34.6 g/dL (32.0-36.0); Mean Corpuscular Hemoglobin 31.4 pg (27.0-31.0); Mean Corpuscular Volume 90.7 fl (78.0-98.0); Mean Platelet Volume 8.4 fL (7.4-10.4); Platelet Count 288 10x3/uL (130-400); RBC Distribution Width 12.6 % (11.5-14.5); Red Blood Cell (RBC) Count 6.14 mill/uL (4.70-6.10); White Blood Cell (WBC) Count 15.4 10x3/uL (4.8-10.8)
[2023-04-05 20:24] LABS: ALT (SGPT) 18 U/L (8-55); AST (SGOT) 16 U/L (5-34); Alkaline Phosphatase 84 U/L (40-110); Anion Gap 15 mmol/L (10-20); BUN (Urea Nitrogen) 10 mg/dL (8.4-25.7); Bilirubin, Total 0.8 mg/dL (0.2-1.2); Calc. Creatinine Clearance 0 mL/min (70-130); Calcium 10.5 mg/dL (7.8-10.44); Carbon Dioxide 27 mmol/L (22-29); Chloride 103 mmol/L (98-107); Estimated GFR 72; Globulin 3.7 g/dL (2.4-3.5); Glucose 115 mg/dL (70-105); Lipase 13 U/L (8-78); Potassium 3.8 mmol/L (3.5-5.1); Protein, Total 8.7 g/dL (6.0-8.3); Sodium 141 mmol/L (136-145)
[2023-04-05] MEDS ORDERED: Midazolam HCl 2 mg/2 ml Vial ONE (22:09)
[2023-04-05 23:40] VITALS: BMI 36.5
[2023-04-05] MEDS ORDERED: Sodium Chloride 0.9% 1,000 ML IV SCH (23:45)
[2023-04-06] MEDS ORDERED: Ondansetron PF 4 MG/2 ML Vial IVP PRN (00:10)
[2023-04-06] MEDS ORDERED: Morphine 4 MG/ML VIAL SLOW IVP PRN (00:11)
[2023-04-06] MEDS ORDERED: Ipratropium/Albuterol 3 ML NEB NEB PRN (03:02)
[2023-04-06] MEDS ORDERED: Benzocaine 20% Spray 60 ML CAN TOP SCH (03:45)
[2023-04-06] MEDS ORDERED: Lidocaine 2% Jelly 5 ML TUBE TOP SCH (03:45)
[2023-04-06] MEDS: Acetaminophen 325 MG TAB PO SCH ×4 (04:56→23:42)
[2023-04-06] MEDS: Sodium Chloride 0.9% 1,000 ML IV SCH ×3 (05:34→20:56)
[2023-04-06 05:58] LABS: #Eosinphils 0.1 thou/uL (0.0-0.7); #Monocytes 0.9 thou/uL (0.11-0.59); #Neutrophils 11.4 thou/uL (1.40-6.50); %Basophils 0.2 % (0.0-1.0); %Eosinophils 0.9 % (0.0-10.0); %Lymphocytes 9.1 % (21.0-51.0); %Monocytes 6.2 % (0.0-10.0); %Neutrophils 82.9 % (42.0-75.0); Hemoglobin 16.8 g/dL (14.0-18.0); Mean Corpuscular HGB CONC 32.7 g/dL (32.0-36.0); Mean Corpuscular Hemoglobin 30.8 pg (27.0-31.0); Mean Platelet Volume 8.7 fL (7.4-10.4); Platelet Count 206 10x3/uL (130-400); RBC Distribution Width 13.1 % (11.5-14.5); Red Blood Cell (RBC) Count 5.46 mill/uL (4.70-6.10); White Blood Cell (WBC) Count 13.8 10x3/uL (4.8-10.8)
[2023-04-06 06:14] LABS: Mean Corpuscular Volume 94.1 fl (78.0-98.0)
[2023-04-06 06:37] LABS: Anion Gap 12 mmol/L (10-20); BUN (Urea Nitrogen) 10 mg/dL (8.4-25.7); Calc. Creatinine Clearance 127 mL/min (70-130); Calcium 8.4 mg/dL (7.8-10.44); Carbon Dioxide 21 mmol/L (22-29); Chloride 110 mmol/L (98-107); Estimated GFR 101; Glucose 108 mg/dL (70-105); Phosphorus 3.2 mg/dL (2.3-4.7); Potassium 4.1 mmol/L (3.5-5.1); Sodium 139 mmol/L (136-145)
[2023-04-06] MEDS ORDERED: Famotidine/PF 20 mg/2ml Vial SLOW IVP SCH (09:00)
[2023-04-06] MEDS ORDERED: MD-Gastroview 120 ML BOT ONE (10:40)
[2023-04-06 10:42] LABS: Bacteria/HPF None Seen HPF (None Seen); Bilirubin Negative (Negative); Blood, Urine Negative (Negative); CAUTI Indications for Culture Dysuria,urgency,freq; Clarity Clear (Clear); Glucose, Urine (Dipstick) Normal (Negative); Ketone, Urine Negative (Negative); Leukocyte Negative Leu/uL (Negative); Nitrite Negative (Negative); Protein, Urine (Dipstick) 10 mg/dL (Neg-Trace); RBC/HPF 0-3 HPF (0-3); Specific Gravity, Urine 1.056 (1.002-1.036); Squamous Epithelial None Seen HPF (0-3); Urobilinogen Normal mg/dL (Less than 2); WBC/HPF 0-3 HPF (0-3); pH, Urine 5.5 (5.0-9.0)
[2023-04-06 10:44] LABS: Urine Culture Reflex No No
[2023-04-07] MEDS: Sodium Chloride 0.9% 1,000 ML IV SCH (05:57)
[2023-04-07] MEDS: Acetaminophen 325 MG TAB PO SCH ×4 (05:59→23:52)
[2023-04-07] MEDS: Lactated Ringer's 1,000 ML IV SCH ×3 (08:30→23:56)
[2023-04-07 09:52] LABS: #Eosinphils 0.1 thou/uL (0.0-0.7); #Monocytes 0.8 thou/uL (0.11-0.59); #Neutrophils 6.7 thou/uL (1.40-6.50); %Basophils 0.3 % (0.0-1.0); %Eosinophils 1.5 % (0.0-10.0); %Lymphocytes 18.4 % (21.0-51.0); %Monocytes 8.5 % (0.0-10.0); Hemoglobin 14.3 g/dL (14.0-18.0); Mean Corpuscular Hemoglobin 31.3 pg (27.0-31.0); Mean Corpuscular Volume 97.8 fl (78.0-98.0); Mean Platelet Volume 9.3 fL (7.4-10.4); Platelet Count 179 10x3/uL (130-400); Red Blood Cell (RBC) Count 4.57 mill/uL (4.70-6.10); White Blood Cell (WBC) Count 9.4 10x3/uL (4.8-10.8)
[2023-04-07] MEDS ORDERED: Iopamidol-370 76% 500 ML MDV (1 ML CHARGE) ONE (10:13)
[2023-04-07 11:33] LABS: Albumin 3.6 g/dL (3.5-5.0)
[2023-04-07 11:34] LABS: Chloride 105 mmol/L (98-107); Sodium 137 mmol/L (136-145)
[2023-04-07 11:35] LABS: Calcium 8.4 mg/dL (7.8-10.44); Potassium 4.1 mmol/L (3.5-5.1)
[2023-04-07 11:36] LABS: Globulin 2.8 g/dL (2.4-3.5); Glucose 71 mg/dL (70-105)
[2023-04-07 11:37] LABS: Anion Gap 12 mmol/L (10-20); Carbon Dioxide 24 mmol/L (22-29)
[2023-04-07 11:39] LABS: Alkaline Phosphatase 59 U/L (40-110); Calc. Creatinine Clearance 137 mL/min (70-130); Estimated GFR 103
[2023-04-07 11:40] LABS: BUN (Urea Nitrogen) 12 mg/dL (8.4-25.7)
[2023-04-07 11:41] LABS: ALT (SGPT) 10 U/L (8-55); AST (SGOT) 11 U/L (5-34)
[2023-04-07 11:47] LABS: Protein, Total 6.4 g/dL (6.0-8.3)
[2023-04-07] MEDS ORDERED: Morphine 2 MG/ML VIAL SLOW IVP PRN (16:37)
[2023-04-07] MEDS ORDERED: traMADol HCl 50 MG TAB PO PRN (16:37)
[2023-04-07] MEDS ORDERED: Cyclobenzaprine 10 MG TAB PO PRN (16:37)
[2023-04-07] MEDS: traMADol HCl 50 MG TAB PO SCH ×2 (18:06→23:52)
[2023-04-07 18:09] LABS: Bacteria/HPF None Seen HPF (None Seen); Bilirubin Negative (Negative); Blood, Urine Trace (Negative); CAUTI Indications for Culture Alt mental st,lethar; Clarity Clear (Clear); Glucose, Urine (Dipstick) Normal (Negative); Ketone, Urine 40 mg/dL (Negative); Leukocyte Negative Leu/uL (Negative); Nitrite Negative (Negative); Protein, Urine (Dipstick) 10 mg/dL (Neg-Trace); RBC/HPF 0-3 HPF (0-3); Specific Gravity, Urine 1.048 (1.002-1.036); Squamous Epithelial 0-3 HPF (0-3); WBC/HPF 0-3 HPF (0-3)
[2023-04-07 18:10] LABS: Urine Culture Reflex No No
[2023-04-07] MEDS ORDERED: Tamsulosin HCl 0.4 MG CAP PO SCH (21:00)
[2023-04-08] MEDS: traMADol HCl 50 MG TAB PO SCH ×2 (06:00→12:38)
[2023-04-08] MEDS: Acetaminophen 325 MG TAB PO SCH ×2 (06:00→12:39)
[2023-04-08] MEDS: Lactated Ringer's 1,000 ML IV SCH (06:03)
[2023-04-08 11:02] VITALS: BP 112/76; TEMP 97.7
[2023-04-10 16:13] LABS: Adenovirus F 40-41 Not Detected (Not Detected); Astrovirus Not Detected (Not Detected); Campylobacter by PCR Not Detected (Not Detected); Cryptosporidium Not Detected (Not Detected); Cyclospora cayetanensis Not Detected (Not Detected); Entamoeba histolytica Not Detected (Not Detected); Enteroaggregative E. coli Not Detected (Not Detected); Enteropathogenic E. coli Not Detected (Not Detected); Enterotoxigenic E. coli Not Detected (Not Detected); Giardia lamblia Not Detected (Not Detected); Norovirus GI-GII DETECTED (Not Detected); Plesiomonas shigelloides Not Detected (Not Detected); Rotavirus A Not Detected (Not Detected); Salmonella Not Detected (Not Detected); Sapovirus Not Detected (Not Detected); Shiga-toxin-producing E coli Not Detected (Not Detected); Shigella/Enteroinvasive E coli Not Detected (Not Detected); Vibrio Not Detected (Not Detected); Vibrio cholerae Not Detected (Not Detected); Yersinia enterocolitica Not Detected (Not Detected)
== END 2023-04-08 14:00 | disposition home or self-care (01) | DRG 392 ==
LOC: ERS 18:49 → SURG A 21:39 → OBSVTOIN 04-06 11:24
PROVIDERS: ADMIT Specialist; ATTEND Specialist
PROC: 0D9670Z Drainage of Stomach with Drainage Device, Via Natural or Artificial Opening (ICD-10-PCS; principal; 2023-04-06)
DX: K52.9 Noninfective gastroenteritis and colitis, unspecified (principal); K56.609 Unspecified intestinal obstruction, unspecified as to partial versus complete obstruction; F17.290 Nicotine dependence, other tobacco product, uncomplicated; E86.0 Dehydration; Z90.49 Acquired absence of other specified parts of digestive tract; Z79.82 Long term (current) use of aspirin; Z88.6 Allergy status to analgesic agent; Z88.5 Allergy status to narcotic agent; Z88.8 Allergy status to other drugs, medicaments and biological substances
CPT/HCPCS: 36415; 74018; 74019; 74177; 74250; 80048; 80053; 81001; 83630; 83690; 83735; 84100; 85025; 87040; 87324; 87449; 87507; 96375; 96376; G0378; J1650; J2250; J2270; J2405; J7050; J7120; Q9963; Q9967; S0028

== ENCOUNTER 2023-10-23 06:32 | Emergency (ER) | payer OTHER ==
[2023-10-23 07:00] LABS: #Eosinphils 0.2 thou/uL (0.0-0.7); #Monocytes 0.6 thou/uL (0.11-0.59); #Neutrophils 3.1 thou/uL (1.40-6.50); %Basophils 0.7 % (0.0-1.0); %Eosinophils 3.1 % (0.0-10.0); %Lymphocytes 31.6 % (21.0-51.0); %Monocytes 10.1 % (0.0-10.0); %Neutrophils 54.3 % (42.0-75.0); Hematocrit 52.6 % (42.0-52.0); Hemoglobin 18.1 g/dL (14.0-18.0); Mean Corpuscular HGB CONC 34.4 g/dL (32.0-36.0); Mean Corpuscular Hemoglobin 31.8 pg (27.0-31.0); Mean Corpuscular Volume 92.3 fl (78.0-98.0); Mean Platelet Volume 8.6 fL (7.4-10.4); Platelet Count 214 10x3/uL (130-400); RBC Distribution Width 12.1 % (11.5-14.5); White Blood Cell (WBC) Count 5.7 10x3/uL (4.8-10.8)
[2023-10-23] MEDS ORDERED: Ondansetron PF 4 MG/2 ML Vial ONE (07:14)
[2023-10-23 07:24] LABS: ALT (SGPT) 14 U/L (8-55); AST (SGOT) 13 U/L (5-34); Albumin 4.2 g/dL (3.5-5.0); Alkaline Phosphatase 66 U/L (40-110); Anion Gap 12 mmol/L (10-20); BUN (Urea Nitrogen) 15 mg/dL (8.4-25.7); Bilirubin, Total 0.7 mg/dL (0.2-1.2); Calc. Creatinine Clearance 0 mL/min (70-130); Calcium 9.4 mg/dL (7.8-10.44); Carbon Dioxide 24 mmol/L (22-29); Chloride 106 mmol/L (98-107); Estimated GFR 101; Globulin 3.1 g/dL (2.4-3.5); Glucose 114 mg/dL (70-105); Lipase 24 U/L (8-78); Potassium 4.6 mmol/L (3.5-5.1); Protein, Total 7.3 g/dL (6.0-8.3); Sodium 137 mmol/L (136-145)
[2023-10-23] MEDS ORDERED: Dicyclomine 20 MG/2 ML VIAL ONE (08:14)
[2023-10-23] MEDS ORDERED: Iopamidol-370 76% 500 ML MDV (1 ML CHARGE) ONE (11:30)
== END 2023-10-23 08:27 | disposition home or self-care (01) ==
LOC: ERS 06:32
DX: K59.00 Constipation, unspecified (principal); I10 Essential (primary) hypertension; F17.210 Nicotine dependence, cigarettes, uncomplicated
CPT/HCPCS: 36415; 74177; 80053; 83690; 85025; 96361; 96372; 96374; J2405; Q9967

== ENCOUNTER 2023-12-15 18:30 | Inpatient (IN) | payer OTHER ==
[~2023-12-15 18:30] MED LIST changes: -Iopamidol 370 76% 100 ML VIAL ONE; +Iopamidol-370 76% 500 ML MDV (1 ML CHARGE) ONE
[2023-12-15 19:51] LABS: #Eosinphils 0.2 thou/uL (0.0-0.7); #Neutrophils 9.9 thou/uL (1.40-6.50); %Basophils 0.3 % (0.0-1.0); %Eosinophils 1.4 % (0.0-10.0); %Lymphocytes 12.1 % (21.0-51.0); %Monocytes 7.7 % (0.0-10.0); %Neutrophils 78.2 % (42.0-75.0); Hemoglobin 17.8 g/dL (14.0-18.0); Mean Corpuscular HGB CONC 33.6 g/dL (32.0-36.0); Mean Corpuscular Hemoglobin 31.8 pg (27.0-31.0); Mean Corpuscular Volume 94.6 fl (78.0-98.0); Mean Platelet Volume 8.2 fL (7.4-10.4); Platelet Count 238 10x3/uL (130-400); RBC Distribution Width 12.3 % (11.5-14.5); White Blood Cell (WBC) Count 12.6 10x3/uL (4.8-10.8)
[2023-12-15 20:32] LABS: ALT (SGPT) 14 U/L (8-55); AST (SGOT) 11 U/L (5-34); Albumin 3.9 g/dL (3.5-5.0); Alkaline Phosphatase 69 U/L (40-110); Anion Gap 11 mmol/L (10-20); BUN (Urea Nitrogen) 17 mg/dL (8.4-25.7); Bilirubin, Total 0.7 mg/dL (0.2-1.2); Calc. Creatinine Clearance 0 mL/min (70-130); Calcium 8.5 mg/dL (7.8-10.44); Carbon Dioxide 23 mmol/L (22-29); Chloride 108 mmol/L (98-107); Estimated GFR 101; Glucose 115 mg/dL (70-105); Lipase 120 U/L (8-78); Potassium 4.5 mmol/L (3.5-5.1); Protein, Total 6.9 g/dL (6.0-8.3); Sodium 137 mmol/L (136-145)
[2023-12-15] MEDS ORDERED: Morphine 4 MG/ML VIAL ONE (20:43)
[2023-12-15] MEDS ORDERED: Ondansetron PF 4 MG/2 ML Vial ONE (20:44)
[2023-12-15] MEDS ORDERED: Acetaminophen 325 MG TAB PO PRN (21:25)
[2023-12-15] MEDS ORDERED: Ondansetron PF 4 MG/2 ML Vial IVP PRN (21:25)
[2023-12-15] MEDS ORDERED: Ondansetron ODT 4 MG TAB PO PRN (21:25)
[2023-12-15] MEDS ORDERED: Acetaminophen 650 MG Suppository PR PRN (21:25)
[2023-12-15] MEDS: Dextrose 5%-Lactated Ringers 1,000 ML IV SCH (23:32)
[2023-12-15 23:57] VITALS: BMI 31.6
[2023-12-16 02:00] LABS: Amphetamine Detected (NotDetected); Barbiturates Screen Not Detected (NotDetected); Benzodiazepine Screen Not Detected (NotDetected); Cocaine Metabolite Screen Not Detected (NotDetected); Methadone Not Detected (NotDetected); Methamphetamine Detected (NotDetected); Opiate Screen Detected (NotDetected); Oxycodone Screen Not Detected (NotDetected); Phencyclidine (PCP) Not Detected (NotDetected); THC/Cannabinoid Screen Not Detected (NotDetected); Tricyclic Screen Not Detected (NotDetected)
[2023-12-16 06:19] LABS: #Eosinphils 0.2 thou/uL (0.0-0.7); %Basophils 0.2 % (0.0-1.0); %Eosinophils 2.1 % (0.0-10.0); %Lymphocytes 24.5 % (21.0-51.0); %Monocytes 11.7 % (0.0-10.0); %Neutrophils 61.1 % (42.0-75.0); Hematocrit 53.2 % (42.0-52.0); Hemoglobin 17.7 g/dL (14.0-18.0); Mean Corpuscular HGB CONC 33.3 g/dL (32.0-36.0); Mean Corpuscular Hemoglobin 31.9 pg (27.0-31.0); Mean Platelet Volume 8.6 fL (7.4-10.4); Platelet Count 217 10x3/uL (130-400); RBC Distribution Width 12.4 % (11.5-14.5); Red Blood Cell (RBC) Count 5.54 mill/uL (4.70-6.10); White Blood Cell (WBC) Count 8.2 10x3/uL (4.8-10.8)
[2023-12-16 06:42] LABS: Anion Gap 11 mmol/L (10-20); BUN (Urea Nitrogen) 14 mg/dL (8.4-25.7); Calc. Creatinine Clearance 125 mL/min (70-130); Calcium 8.5 mg/dL (7.8-10.44); Carbon Dioxide 26 mmol/L (22-29); Chloride 104 mmol/L (98-107); Estimated GFR 101; Glucose 103 mg/dL (70-105); Potassium 4.3 mmol/L (3.5-5.1); Sodium 137 mmol/L (136-145)
[2023-12-16] MEDS: Acetaminophen 650 MG/20.3 ML UDCUP PER TUBE PRN (08:44)
[2023-12-16] MEDS: Famotidine 20 MG TAB PO SCH ×3 (08:45→22:23)
[2023-12-16] MEDS: Famotidine/PF 20 mg/2ml Vial SLOW IVP SCH ×2 (08:45→22:23)
[2023-12-16] MEDS: Dextrose 5%-Lactated Ringers 1,000 ML IV SCH (08:47)
[2023-12-16] MEDS: Morphine 2 MG/ML VIAL SLOW IVP PRN ×4 (09:52→22:35)
[2023-12-17 00:34] LABS: Base Excess 0.2 mEq/L (-2.0 to +3.0); Calcium, Ionized (venous) 1.13 mmol/L (1.16-1.32); Chloride (VBG) 99 mmol/L (98-106); Hematocrit-VBG 49 % (42.0-52.0); Hemoglobin (Hb) 16.7 g/dL (13.1-17.2); Potassium (VBG) 4.26 mmol/L (3.70-5.30); Sodium 137 mmol/L (133-146); pH (venous) 7.371 (7.32-7.43)
[2023-12-17 00:39] LABS: #Eosinphils 0.1 thou/uL (0.0-0.7); #Monocytes 0.9 thou/uL (0.11-0.59); #Neutrophils 6.9 thou/uL (1.40-6.50); %Basophils 0.3 % (0.0-1.0); %Lymphocytes 18.8 % (21.0-51.0); %Monocytes 9.5 % (0.0-10.0); %Neutrophils 70.2 % (42.0-75.0); Hematocrit 46.6 % (42.0-52.0); Hemoglobin 16.1 g/dL (14.0-18.0); Mean Corpuscular HGB CONC 34.5 g/dL (32.0-36.0); Mean Corpuscular Hemoglobin 32.3 pg (27.0-31.0); Mean Corpuscular Volume 93.6 fl (78.0-98.0); Mean Platelet Volume 8.2 fL (7.4-10.4); Platelet Count 196 10x3/uL (130-400); RBC Distribution Width 12.1 % (11.5-14.5); Red Blood Cell (RBC) Count 4.98 mill/uL (4.70-6.10); White Blood Cell (WBC) Count 9.8 10x3/uL (4.8-10.8)
[2023-12-17 00:56] LABS: Lactic Acid 0.8 mmol/L (0.5-2.2)
[2023-12-17 01:01] LABS: Anion Gap 12 mmol/L (10-20); BUN (Urea Nitrogen) 11 mg/dL (8.4-25.7); Calc. Creatinine Clearance 140 mL/min (70-130); Calcium 8.2 mg/dL (7.8-10.44); Carbon Dioxide 28 mmol/L (22-29); Chloride 101 mmol/L (98-107); Estimated GFR 104; Glucose 84 mg/dL (70-105); Magnesium 1.9 mg/dL (1.6-2.6); Potassium 4.2 mmol/L (3.5-5.1); Sodium 137 mmol/L (136-145)
[2023-12-17] MEDS: Morphine 2 MG/ML VIAL SLOW IVP PRN ×5 (03:37→21:34)
[2023-12-17] MEDS: Acetaminophen 650 MG/20.3 ML UDCUP PER TUBE PRN (03:38)
[2023-12-17] MEDS: Famotidine/PF 20 mg/2ml Vial SLOW IVP SCH ×2 (08:48→21:07)
[2023-12-17] MEDS: Famotidine 20 MG TAB PO SCH ×2 (08:54→20:25)
[2023-12-17] MEDS: Dicyclomine 10 MG CAP PO SCH ×2 (17:30→20:25)
[2023-12-17] MEDS: Senokot S 8.6-50 MG TAB PO SCH (20:25)
[2023-12-18] MEDS: HYDROcodone/Acetaminophen 5/325 mg Tablet PO PRN ×2 (01:50→22:51)
[2023-12-18] MEDS: Morphine 2 MG/ML VIAL SLOW IVP PRN ×3 (09:09→18:45)
[2023-12-18] MEDS: Famotidine/PF 20 mg/2ml Vial SLOW IVP SCH ×2 (09:11→20:07)
[2023-12-18] MEDS: Famotidine 20 MG TAB PO SCH ×2 (09:35→20:02)
[2023-12-18] MEDS: Senokot S 8.6-50 MG TAB PO SCH ×2 (09:36→20:02)
[2023-12-18] MEDS: Dicyclomine 10 MG CAP PO SCH ×4 (09:36→20:02)
[2023-12-18] MEDS: Phenol 177 ML BOT PO PRN ×3 (09:48→22:51)
[2023-12-18 10:35] LABS: #Monocytes 0.9 thou/uL (0.11-0.59); #Neutrophils 7.1 thou/uL (1.40-6.50); %Basophils 0.4 % (0.0-1.0); %Eosinophils 0.3 % (0.0-10.0); %Lymphocytes 11.4 % (21.0-51.0); %Monocytes 9.9 % (0.0-10.0); %Neutrophils 77.8 % (42.0-75.0); Hematocrit 49.7 % (42.0-52.0); Hemoglobin 17.1 g/dL (14.0-18.0); Mean Corpuscular HGB CONC 34.4 g/dL (32.0-36.0); Mean Corpuscular Hemoglobin 31.8 pg (27.0-31.0); Mean Corpuscular Volume 92.4 fl (78.0-98.0); RBC Distribution Width 11.7 % (11.5-14.5); Red Blood Cell (RBC) Count 5.38 mill/uL (4.70-6.10); White Blood Cell (WBC) Count 9.1 10x3/uL (4.8-10.8)
[2023-12-18 12:01] LABS: Anion Gap 16 mmol/L (10-20); BUN (Urea Nitrogen) 16 mg/dL (8.4-25.7); Calc. Creatinine Clearance 138 mL/min (70-130); Calcium 9.2 mg/dL (7.8-10.44); Carbon Dioxide 24 mmol/L (22-29); Chloride 99 mmol/L (98-107); Estimated GFR 104; Glucose 70 mg/dL (70-105); Magnesium 1.9 mg/dL (1.6-2.6); Potassium 4.8 mmol/L (3.5-5.1); Sodium 134 mmol/L (136-145)
[2023-12-18] MEDS ORDERED: Mineral Oil ENEMA PR SCH (13:30)
[2023-12-18] MEDS ORDERED: Dextrose 5 %-0.45 % NaCl 1,000 ML IV SCH (22:45)
[2023-12-19] MEDS: Phenol 177 ML BOT PO PRN ×4 (06:41→20:30)
[2023-12-19 07:46] LABS: #Eosinphils 0.1 thou/uL (0.0-0.7); #Monocytes 1.4 thou/uL (0.11-0.59); #Neutrophils 6.9 thou/uL (1.40-6.50); %Basophils 0.3 % (0.0-1.0); %Eosinophils 0.7 % (0.0-10.0); %Lymphocytes 15.6 % (21.0-51.0); %Neutrophils 69.1 % (42.0-75.0); Hematocrit 51.3 % (42.0-52.0); Hemoglobin 17.6 g/dL (14.0-18.0); Mean Corpuscular HGB CONC 34.3 g/dL (32.0-36.0); Mean Corpuscular Hemoglobin 31.9 pg (27.0-31.0); Mean Corpuscular Volume 92.9 fl (78.0-98.0); Mean Platelet Volume 8.8 fL (7.4-10.4); Platelet Count 167 10x3/uL (130-400); RBC Distribution Width 11.7 % (11.5-14.5); Red Blood Cell (RBC) Count 5.52 mill/uL (4.70-6.10)
[2023-12-19 08:06] LABS: Anion Gap 14 mmol/L (10-20); BUN (Urea Nitrogen) 15 mg/dL (8.4-25.7); Calc. Creatinine Clearance 143 mL/min (70-130); Calcium 9.1 mg/dL (7.8-10.44); Carbon Dioxide 28 mmol/L (22-29); Chloride 99 mmol/L (98-107); Estimated GFR 105; Glucose 87 mg/dL (70-105); Magnesium 2.1 mg/dL (1.6-2.6); Potassium 4.2 mmol/L (3.5-5.1); Sodium 137 mmol/L (136-145)
[2023-12-19] MEDS: Morphine 2 MG/ML VIAL SLOW IVP PRN (08:27)
[2023-12-19] MEDS: Senokot S 8.6-50 MG TAB PO SCH ×3 (08:29→20:09)
[2023-12-19] MEDS: Famotidine/PF 20 mg/2ml Vial SLOW IVP SCH ×3 (08:29→20:07)
[2023-12-19] MEDS: Dicyclomine 10 MG CAP PO SCH ×5 (08:29→20:06)
[2023-12-19] MEDS ORDERED: MD-Gastroview 120 ML BOT ONE (08:46)
[2023-12-19] MEDS: Famotidine 20 MG TAB PO SCH ×3 (08:58→20:07)
[2023-12-19] MEDS: HYDROcodone/Acetaminophen 5/325 mg Tablet PO PRN (19:46)
[2023-12-20] MEDS: hydrALAZINE 20 MG/ML VIAL SLOW IVP PRN ×2 (00:47→05:23)
[2023-12-20] MEDS: Famotidine 20 MG TAB PO SCH ×2 (08:07→20:28)
[2023-12-20] MEDS: Famotidine/PF 20 mg/2ml Vial SLOW IVP SCH ×2 (08:07→20:29)
[2023-12-20] MEDS: HYDROcodone/Acetaminophen 5/325 mg Tablet PO PRN (08:07)
[2023-12-20] MEDS: Dicyclomine 10 MG CAP PO SCH ×4 (08:07→20:28)
[2023-12-20] MEDS: Senokot S 8.6-50 MG TAB PO SCH ×2 (08:18→20:28)
[2023-12-20] MEDS: Polyethylene Glycol 3350 17 GM Packet PO SCH (08:40)
[2023-12-20] MEDS ORDERED: Lidocaine 4% Patch TD SCH (15:00)
[2023-12-20] MEDS: Phenol 177 ML BOT PO PRN (20:29)
[2023-12-21] MEDS ORDERED: Transdermal Patch Removal TOP SCH (03:00)
[2023-12-21] MEDS: Famotidine 20 MG TAB PO SCH (08:36)
[2023-12-21] MEDS: Famotidine/PF 20 mg/2ml Vial SLOW IVP SCH (08:37)
[2023-12-21] MEDS: Senokot S 8.6-50 MG TAB PO SCH (08:37)
[2023-12-21] MEDS: Polyethylene Glycol 3350 17 GM Packet PO SCH (08:38)
[2023-12-21] MEDS: Dicyclomine 10 MG CAP PO SCH (09:00)
[2023-12-21] MEDS ORDERED: methylPREDNISolone Sod Succ 40 MG VIAL IVP SCH (09:30)
[2023-12-21 12:04] VITALS: BP 132/86; TEMP 98.1
== END 2023-12-21 13:30 | disposition home or self-care (01) | DRG 390 ==
LOC: ERS 18:30 → T4-B 21:58
PROVIDERS: ADMIT Student in an Organized Health Care Education/Training Program; ATTEND Hospitalist
PROC: 0D9670Z Drainage of Stomach with Drainage Device, Via Natural or Artificial Opening (ICD-10-PCS; principal; 2023-12-15)
DX: K56.609 Unspecified intestinal obstruction, unspecified as to partial versus complete obstruction (principal); F17.210 Nicotine dependence, cigarettes, uncomplicated; F15.10 Other stimulant abuse, uncomplicated; F31.9 Bipolar disorder, unspecified; I50.9 Heart failure, unspecified; R50.9 Fever, unspecified; K59.00 Constipation, unspecified; M25.511 Pain in right shoulder; I11.0 Hypertensive heart disease with heart failure; Z88.8 Allergy status to other drugs, medicaments and biological substances; Z79.82 Long term (current) use of aspirin; Z79.899 Other long term (current) drug therapy; Z98.890 Other specified postprocedural states; Z90.49 Acquired absence of other specified parts of digestive tract
CPT/HCPCS: 36415; 36416; 43753; 74018; 74177; 74250; 80048; 80053; 80306; 82805; 83605; 83690; 83735; 83880; 84550; 85025; 87040; 87149; 96374; 96375; J0360; J2270; J2272; J2405; J7042; Q9963; Q9967; S0028

== ENCOUNTER 2025-10-28 21:08 | Inpatient (IN) | payer OTHER ==
[2025-10-28] MEDS ORDERED: Guaifenesin DM 100-10/5 ML UDCUP PO PRN (23:41)
[2025-10-28] MEDS ORDERED: Calcium Carbonate 500 MG ChewTAB PO PRN (23:41)
[2025-10-28] MEDS ORDERED: Senokot S 8.6-50 MG TAB PO PRN (23:41)
[2025-10-28] MEDS ORDERED: Ondansetron PF 4 MG/2 ML Vial IVP PRN (23:41)
[2025-10-29 00:27] VITALS: BMI 33.9
[2025-10-29 02:24] LABS: Influenza A by NAA Not Detected (NotDetected); Influenza B by NAA Not Detected (NotDetected); SARS-CoV-2 NAA Rapid Test Not Detected (NotDetected)
[2025-10-29 06:00] LABS: #Basophils 0.06 10x3/uL (0.0-0.2); #Eosinophils 0.16 10x3/uL (0.0-0.7); #Monocytes 1.48 10x3/uL (0.11-0.59); #Neutrophils 10.63 10x3/uL (1.40-6.50); %Basophils 0.4 % (0.0-1.0); %Eosinophils 1.2 % (0.0-10.0); %Lymphocytes 9.9 % (21.0-51.0); %Monocytes 10.8 % (0.0-10.0); %Neutrophils 77.4 % (42.0-75.0); Hematocrit 54.0 % (42.0-52.0); Hemoglobin 18.1 g/dL (14.0-18.0); Mean Corpuscular Hemoglobin 31.3 pg (27.0-31.0); Mean Corpuscular Volume 93.4 fL (78.0-98.0); Platelet Count 202 10x3/uL (130-400); Red Blood Cell (RBC) Count 5.78 mill/uL (4.70-6.10); White Blood Cell (WBC) Count 13.73 10x3/uL (4.8-10.8)
[2025-10-29 06:50] LABS: CRP, High Sensitivity at Bryan 5.65 mg/dL (< or = 0.5)
[2025-10-29 06:51] LABS: Anion Gap 15 mmol/L (10-20); BUN (Urea Nitrogen) 20 mg/dL (8.4-25.7); CK (CPK) 36 U/L (30-200); Calc. Creatinine Clearance 101 mL/min (70-130); Calcium 8.4 mg/dL (7.8-10.44); Carbon Dioxide 21 mmol/L (22-29); Chloride 109 mmol/L (98-107); Glucose 105 mg/dL (70-105); Magnesium 1.8 mg/dL (1.6-2.6); Potassium 4.8 mmol/L (3.5-5.1); Sodium 140 mmol/L (136-145)
[2025-10-29] MEDS: Enoxaparin 40 MG (0.4 mL) SYRINGE SC SCH (09:16)
[2025-10-29] MEDS: Pantoprazole 40 MG DR.TAB PO SCH (09:16)
[2025-10-29] MEDS: Acetaminophen 325 MG TAB PO PRN (14:57)
[2025-10-29] MEDS: cefTRIAXone\\ROCEPHIN 2 GM in Sodium Chloride 0.9% 100 ML IVPB SCH (18:04)
[2025-10-29 18:05] LABS: Glucose, Urine (Dipstick) Normal (Negative); Leukocyte Negative Leu/uL (Negative); Protein, Urine (Dipstick) 30 mg/dL (Neg-Trace); RBC/HPF None Seen HPF (0-3); Specific Gravity, Urine 1.025 (1.002-1.036)
[2025-10-29 18:06] LABS: Bacteria/HPF 1+ HPF (None Seen); Sperm/HPF 1+ HPF (None Seen)
[2025-10-29 18:48] LABS: Legionella Urinary Ag Negative (Negative); Strep pneumo Urine Ag NEGATIVE (NEGATIVE)
[2025-10-30 06:40] LABS: ALT (SGPT) 20 U/L (Less than 45); AST (SGOT) 14 U/L (11-34); Albumin 3.3 g/dL (3.1-4.5); Alkaline Phosphatase 56 U/L (40-110); Anion Gap 15 mmol/L (10-20); BUN (Urea Nitrogen) 16 mg/dL (8.4-25.7); Bilirubin, Total 0.6 mg/dL (0.3-1.2); Calc. Creatinine Clearance 139 mL/min (70-130); Calcium 8.8 mg/dL (7.8-10.44); Carbon Dioxide 24 mmol/L (22-29); Chloride 105 mmol/L (98-107); Globulin 3.0 g/dL (2.4-3.5); Glucose 67 mg/dL (70-105); Potassium 4.5 mmol/L (3.5-5.1); Sodium 139 mmol/L (136-145)
[2025-10-30 10:48] LABS: #Basophils 0.03 10x3/uL (0.0-0.2); #Eosinophils 0.29 10x3/uL (0.0-0.7); #Monocytes 0.86 10x3/uL (0.11-0.59); #Neutrophils 5.32 10x3/uL (1.40-6.50); %Basophils 0.4 % (0.0-1.0); %Eosinophils 3.4 % (0.0-10.0); %Lymphocytes 23.7 % (21.0-51.0); %Monocytes 10.0 % (0.0-10.0); %Neutrophils 62.1 % (42.0-75.0); Hematocrit 51.9 % (42.0-52.0); Hemoglobin 16.6 g/dL (14.0-18.0); Mean Corpuscular Hemoglobin 31.0 pg (27.0-31.0); Mean Corpuscular Volume 96.8 fL (78.0-98.0); Platelet Count 148 10x3/uL (130-400); Red Blood Cell (RBC) Count 5.36 mill/uL (4.70-6.10); White Blood Cell (WBC) Count 8.56 10x3/uL (4.8-10.8)
[2025-10-30 16:22] LABS: Cocaine Metabolite Screen Negative (Negative); THC/Cannabinoid Screen Negative (Negative)
[2025-10-30 16:23] LABS: Tricyclic Screen Negative (Negative)
[2025-10-31 07:41] LABS: #Basophils 0.03 10x3/uL (0.0-0.2); #Eosinophils 0.20 10x3/uL (0.0-0.7); #Monocytes 0.86 10x3/uL (0.11-0.59); #Neutrophils 3.33 10x3/uL (1.40-6.50); %Basophils 0.5 % (0.0-1.0); %Eosinophils 3.4 % (0.0-10.0); %Lymphocytes 24.5 % (21.0-51.0); %Monocytes 14.6 % (0.0-10.0); %Neutrophils 56.7 % (42.0-75.0); Hematocrit 45.7 % (42.0-52.0); Hemoglobin 16.0 g/dL (14.0-18.0); Mean Corpuscular Hemoglobin 32.0 pg (27.0-31.0); Mean Corpuscular Volume 91.4 fL (78.0-98.0); Platelet Count 129 10x3/uL (130-400); Red Blood Cell (RBC) Count 5.00 mill/uL (4.70-6.10); White Blood Cell (WBC) Count 5.88 10x3/uL (4.8-10.8)
[2025-10-31 08:02] LABS: ALT (SGPT) 13 U/L (Less than 45); AST (SGOT) 9 U/L (11-34); Albumin 3.0 g/dL (3.1-4.5); Alkaline Phosphatase 46 U/L (40-110); Anion Gap 10 mmol/L (10-20); BUN (Urea Nitrogen) 12 mg/dL (8.4-25.7); Bilirubin, Total 0.3 mg/dL (0.3-1.2); Calc. Creatinine Clearance 156 mL/min (70-130); Calcium 8.7 mg/dL (7.8-10.44); Carbon Dioxide 26 mmol/L (22-29); Chloride 109 mmol/L (98-107); Globulin 2.5 g/dL (2.4-3.5); Glucose 87 mg/dL (70-105); Potassium 3.7 mmol/L (3.5-5.1); Sodium 141 mmol/L (136-145)
[2025-10-31] MEDS ORDERED: hydrALAZINE 20 MG/ML VIAL SLOW IVP PRN (12:39)
[2025-10-31] MEDS: Losartan 25 MG TAB PO SCH (16:51)
[2025-10-31] MEDS: cefTRIAXone\\ROCEPHIN 2 GM in Sodium Chloride 0.9% 100 ML IVPB SCH (18:48)
[2025-11-01 01:22] VITALS: TEMP 98.2
[2025-11-01 05:25] LABS: #Basophils 0.04 10x3/uL (0.0-0.2); #Eosinophils 0.18 10x3/uL (0.0-0.7); #Monocytes 0.61 10x3/uL (0.11-0.59); #Neutrophils 2.48 10x3/uL (1.40-6.50); %Basophils 0.8 % (0.0-1.0); %Eosinophils 3.7 % (0.0-10.0); %Lymphocytes 32.7 % (21.0-51.0); %Monocytes 12.4 % (0.0-10.0); %Neutrophils 50.2 % (42.0-75.0); Hematocrit 47.4 % (42.0-52.0); Hemoglobin 16.5 g/dL (14.0-18.0); Mean Corpuscular Hemoglobin 31.4 pg (27.0-31.0); Mean Corpuscular Volume 90.3 fL (78.0-98.0); Platelet Count 170 10x3/uL (130-400); Red Blood Cell (RBC) Count 5.25 mill/uL (4.70-6.10); White Blood Cell (WBC) Count 4.93 10x3/uL (4.8-10.8)
[2025-11-01 05:36] LABS: Anion Gap 12 mmol/L (10-20); BUN (Urea Nitrogen) 8 mg/dL (8.4-25.7); Calc. Creatinine Clearance 167 mL/min (70-130); Calcium 8.9 mg/dL (7.8-10.44); Carbon Dioxide 22 mmol/L (22-29); Chloride 110 mmol/L (98-107); Glucose 126 mg/dL (70-105); Potassium 3.3 mmol/L (3.5-5.1); Sodium 141 mmol/L (136-145)
[2025-11-01] MEDS: Potassium Bicarbonate/Cit Ac 20 MEQ TAB PO SCH (10:05)
[2025-11-01 14:40] VITALS: BP 148/88
[2025-11-02] MEDS ORDERED: FLU (Fluarix Triv) 25-26 (6MOS UP)/PF 45 MCG/0.5 ML Syringe IM ONE (01:15)
[2025-11-02] MEDS ORDERED: PNEUMOC 20-VAL CONJ-DIP CRM/PF 0.5 ML SYRINGE IM ONE (01:15)
== END 2025-11-01 14:37 | disposition home or self-care (01) | DRG 871 ==
LOC: T4-A 23:49
PROVIDERS: ADMIT Internal Medicine; ATTEND Internal Medicine
DX: A41.9 Sepsis, unspecified organism (principal); G92.8 Other toxic encephalopathy; J18.9 Pneumonia, unspecified organism; J96.01 Acute respiratory failure with hypoxia; I10 Essential (primary) hypertension; F31.9 Bipolar disorder, unspecified; D75.1 Secondary polycythemia; Z87.891 Personal history of nicotine dependence
CPT/HCPCS: 36415; 80048; 80053; 80306; 81001; 82550; 83735; 84443; 85025; 86141; 87449; 87636; 87899; J0696; J1650; J7120